=== PATIENT | female | born 2000 | race Caucasian/White ===

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

== ENCOUNTER 2018-09-25 21:29 | Emergency (ER) | payer BC ==
[2018-09-25 21:48] VITALS: BP 104/67; PULSE 81; TEMP 98.3
--- NOTE | 2018-09-25 23:01 | PDOC ---
History of Present Illness - General Chief Complaint: Rectal Bleed Stated Complaint: RECTAL BLEEDING/ABD PAIN Time Seen by Provider: 09/25/18 22:59 History Source: Patient, Parent(s) (Mother present at bedside), Old Records Exam Limitations: No Limitations - History of Present Illness Initial Comments: HPI: 18 y/o female presenting to [facility] ER complaining of two episodes of bright red blood per rectum today. Pt reports noticing a large amount of blood in the toilet bowl after a bowel movement around 3pm. Denies difficulty passing BM or increased straining. Noted a smaller amount of blood again after BM around 9pm tonight. No bleeding noted between the two BMs. Reports two days of vague and difficult to describe cramping sorta like periods throughout her abdomen. Denies a h/o of similar symptoms. No nausea, vomiting, diarrhea, constipation, fevers, or chills. No person or familial history of UC, Crohn's, IBS, Celiac disease, or cancer. PCP: Dr. Navarro Medical Hx: - Anxiety, managed with Lexapro and PRN Klonopin - Rheumatoid Arthritis, not medically managed. No recent flairs. Surgical Hx: - Pt denies past surgical history. Family Hx: - Per HPI Past History - Past Medical History Allergies/Adverse Reactions: Allergies Allergy/AdvReac Type Severity Reaction Status Date / Time shellfish derived Allergy Verified 09/25/18 21:48 Home Medications: Ambulatory Orders clonazePAM [Klonopin -] 0.5 mg PO DAILY 11/27/17 Phenyleph/Pramoxin/Glycr/W.pet [Preparation H Cream] 26 gm RC BID #1 cream..g. 09/25/18 Asthma: Yes COPD: No Disorders: Yes (H/O UTI A CHILD) Psychiatric Problems: Yes (anxiety and depression) - Immunization History Immunization Up to Date: Yes - Suicide/Smoking/Psychosocial Hx Smoking Status: No Smoking History: Never smoked Have you smoked in the past 12 months: No Number of Cigarettes Smoked Daily: 0 Information on smoking cessation initiated: No Hx Alcohol Use: No Drug/Substance Use Hx: No Substance Use Type: None Review of Systems - Review of Systems Able to Perform ROS?: Yes Comments:: In addition to that documented in the HPI above, the additional ROS was obtained : Constitutional: Denies fevers, chills, or syncope Neuro: Denies lightheadedness, dizziness, change in vision, or change in hearing ENMT: Denies sore throat CV: Denies chest pain Resp: Denies SOB GI: Denies vomiting or diarrhea : Denies dysuria, hematuria, or urinary frequency *Physical Exam - Vital Signs Last Vital Signs Temp Pulse Resp BP Pulse Ox 98.3 F 81 18 104/67 100 09/25/18 21:45 09/25/18 21:45 09/25/18 21:45 09/25/18 21:45 09/25/18 21:45 - Physical Exam Comments: Constitutional: Well-developed, well-nourished female in no acute distress or obvious discomfort. Obese body habitus. Found semi-fowlers on hospital bed. Alert and oriented x4. Answered all questions appropriately and completely. Speech was non-labored, non-pressured. Head: Normocephalic. No obvious external signs of trauma. Eyes: Sclerae white. Conjunctiva pink, moist, and not injected. Ears: Hearing grossly intact. Nose: No nasal discharge. Neck: Supple, trachea is midline. Cardiovascular / Chest: Regular rate and regular rhythm. No murmur, rubs, clicks, or gallops. Peripheral pulses: radial pulses full. Respiratory: Breathing unlabored. Equal chest rise and fall. Clear to auscultation bilaterally. No stridor, no wheezing, no rhonchi. Gastrointestinal: abdomen is soft, non-tender, non-distended. No grimace, rebound, guarding, or withdrawl. No hepatosplenemegaly. No pulsatile masses. No overlying skin lesions or obvious signs of trauma. Neuro: Alert and oriented. Moving all four extremities spontaneously. Skin: Warm, dry, and intact. No bruising, rashes, or other lesions. : No R or L CVA tenderness. Psych: Affect: appropriate. Mood: normal. Rectal: Good sphincter tone with no anal, perineal or rectal lesions. No obvious internal hemorrhoids palpable. No blood on glove. Trace amount of normal appearing brown stool. No melena. RN chaperoned exam. Moderate Sedation - Procedure Monitoring Vital Signs: Procedure Monitoring Vital Signs Temperature 98.3 F 09/25/18 21:45 Pulse Rate 81 09/25/18 21:45 Respiratory Rate 18 09/25/18 21:45 Blood Pressure 104/67 09/25/18 21:45 O2 Sat by Pulse Oximetry (%) 100 09/25/18 21:45 Medical Decision Making - Medical Decision Making *Reviewed vital signs, nursing notes, and prior visit documentation (if available). 18 y/o female presenting with two episodes of BRBPR. No h/o of similar. No concerning family history. Suspect possible internal hemorrhoid given association with BM and no reported melena. Afebrile. Vitals unremarkable for hypotension or tachycardia. Physical exam as described above. Low suspicion for anemia or active hemorrhage. Will refer pt to GI for outpatient follow up to further evaluate for inflammatory conditions or malignancy. Prescribed Prep H. Encouraged pt to increase dietary fiber intake and trial OTC stool softener. Discussed physical exam findings with pt and pts mother. Answered all questions. Provided return precautions. Pt expressed verbal understanding and agreement with plan to discharge home with outpatient follow up. *DC/Admit/Observation/Transfer Diagnosis at time of Disposition: Rectal bleeding - Discharge Dispostion Disposition: HOME Condition at time of disposition: Good Decision to Admit order: No - Prescriptions Prescriptions: Phenyleph/Pramoxin/Glycr/W.pet [Preparation H Cream] 26 gm RC BID #1 cream..g. - Referrals Referrals: Catalina Navarro MD [Primary Care Provider] - Maria Isabel Santos DO [Staff Physician] - - Patient Instructions Printed Discharge Instructions: DI for Hemorrhoids, DI for Rectal Bleeding Additional Instructions: You were seen today for rectal bleeding. Your vital signs and physical exam did not show any life threatening findings. The bleeding is likely because of an internal hemorrhoid. These do not usually cause pain but can cause bleeding while bowel movements. I have sent a prescription for Preparation H to you pharmacy. This medication is also available over the counter. Take as directed on the prescription or package insert. Do not exceed the recommended dose. You should also try warm sitz baths, stool softeners, and increasing your dietary fiber. You need to follow up with a GI doctor within the next week. I have placed a referral for you to see Dr. Santos. You will need to call to make an appointment. The number is included in this packet. You can also follow up with your primary care doctor. Go to the nearest emergency department if your condition worsens or you feel like you need additional emergency evaluation. Print Language: LEBANESE - Post Discharge Activity
[2018-09-25 23:28] VITALS: BMI 64.5
--- NOTE | 2018-09-25 23:47 | PDOC ---
Attending Attestation - Resident Resident Name: Conenr Fry - ED Attending Attestation I have performed the following: I have examined & evaluated the patient, The case was reviewed & discussed with the resident, I agree w/resident's findings & plan, Exceptions are as noted - Medical Decision Making 09/25/18 23:37 A portion of this note was documented by scribe services under my direction. I have reviewed the details of the note, within reason, and agree with the documentation with the following case summary and management plan written by me. Patient treated in the ED. Nursing notes are reviewed and incorporated into the medical decision-making. Vital signs reviewed. Peripheral IV access obtained by the nurse, laboratory studies are drawn and sent, reviewed and interpreted by myself. Vital Signs Temp Pulse Resp BP Pulse Ox 98.3 F 81 18 104/67 100 09/25/18 21:45 09/25/18 21:45 09/25/18 21:45 09/25/18 23:25 09/25/18 21:45 18-year-old female with history of rheumatoid arthritis not on medications presents with 2 discrete episodes of painless blood per rectum. First-time episode. Patient denies abdominal pain. First-time episode. Never had a colonoscopy. Denies family history of colon cancer, irritable bowel disease or irritable bowel syndrome. Denies any further episodes. I suspect patient likely has internal hemorrhoids. We'll need stool softeners and sitz bath and preparation H. However, the patient will most certainly need a GI follow-up for colonoscopy. I advised patient that she will need to be ruled out for irritable bowel disease and potential malignancy though they are not common. They verbalize understanding agrees with plan and like to follow-up with her doctor. Return precautions given including worsening bleeding. <Fran Rubalcava - Last Filed: 09/25/18 23:36> - HPI HPI: 09/25/18 23:47 The patient is a 18 year old female, with a significant PMH of RA, anxiety and depression, who presents to the emergency department with 2 episodes of bright red blood per rectum today. The patient states she noted the blood in her stool following bowel movements. The patient denies any bleeding between bowel movements. Denies any abdominal pain or cramping. Denies fever, chills, nausea, vomit, diarrhea and constipation. The patient denies chest pain, shortness of breath, headache and dizziness. Denies dysuria, frequency, urgency and hematuria. Allergies: shellfish derived Documentation prepared by Lizandro Tate, acting as certified medical technician assistant for Fran Rubalcava MD. - Physicial Exam PE: 09/25/18 23:48 GENERAL: Awake, alert, and fully oriented, in no acute distress HEAD: No signs of trauma EYES: PERRLA, EOMI, sclera anicteric, conjunctiva clear ENT: Auricles normal inspection, hearing grossly normal, nares patent. Moist mucosa NECK: Normal ROM, supple, no JVD. ABDOMEN: Soft, nontender. No guarding, no rebound. No masses EXTREMITIES: Normal range of motion, no edema. No clubbing or cyanosis. No cords, erythema, or tenderness NEUROLOGICAL: Cranial nerves II through XII intact. Normal speech. SKIN: Warm, Dry, normal turgor, no rashes or lesions noted. Rectal exam as per resident Dr Fry. <Lizandro Tate - Last Filed: 09/25/18 23:48>
== END 2018-09-25 23:53 | disposition home or self-care (01) ==
LOC: JER 21:29
DX: K62.5 Hemorrhage of anus and rectum (principal); F41.8 Other specified anxiety disorders; F32.9 Major depressive disorder, single episode, unspecified; M06.9 Rheumatoid arthritis, unspecified
CPT/HCPCS: 99282-25

== ENCOUNTER 2024-08-12 11:03 | Emergency (ER) | payer BC, OTHER ==
[2024-08-12 12:44] VITALS: RESP 18; TEMP 98.6; BMI 41.0
[2024-08-12 13:33] VITALS: BP 108/73; PULSE 90
[2024-08-12 14:01] LABS: HIV INTERPRETATION NEGATIVE (NEGATIVE)
== END 2024-08-12 13:33 | disposition home or self-care (01) ==
LOC: JERFT 11:03 → JER 11:03
DX: J01.90 Acute sinusitis, unspecified (principal); J06.9 Acute upper respiratory infection, unspecified; R09.81 Nasal congestion; R05.9 Cough, unspecified; R09.3 Abnormal sputum; Z20.822 Contact with and (suspected) exposure to COVID-19
CPT/HCPCS: 0241U-QW; 36415; 71046-TC-FY; 86803; 87389; 99284-25